=== PATIENT | male | born 1970 | race Caucasian/White ===

== ENCOUNTER 2020-08-29 08:58 | Inpatient (IN) | payer OTHER ==
[~2020-08-29] VITALS: Ht 193 cm; Wt 129.3 kg
[2020-08-29] MEDS ORDERED: ZANAFLEX4 MG PO (09:23)
[2020-08-29] MEDS ORDERED: GLUCOPHAGE500 MG PO (09:23)
[2020-08-29] MEDS ORDERED: FENOFIBRATE160 MG PO (09:24)
[2020-08-29] MEDS ORDERED: GLUCOTROL 5 MG T5 MG PO (09:24)
[2020-08-29] MEDS ORDERED: GABAPENTIN300 MG PO (09:24)
[2020-08-29] MEDS ORDERED: CRESTOR20 MG PO (09:24)
[2020-08-29] MEDS ORDERED: MOBIC7.5 MG PO (09:25)
[2020-08-29] MEDS ORDERED: LISINOPRIL10 MG PO (09:25)
[2020-08-29 10:12] LABS: BASOPHILS 0 % (0-2); EOSINOPHILS 1.9 % (0-7); HEMATOCRIT 36.8 % (42.0-54.0); HEMOGLOBIN 12.7 g/dL (13.5-17.5); IMMATURE GRANULOCYTES 0.2 % (0-5); LYMPHOCYTES 25.3 % (15-50); MCH 28.7 pg (26.0-34.0); MCHC 34.5 g/dL (31.0-37.0); MCV 83.3 fL (80.0-100.0); MEAN PLATELET VOLUME 10.9 fL (7.4-10.4); MONOCYTES 4.7 % (2-11); NEUTROPHILS 67.9 % (40-80); PLATELET COUNT 138 10x3/uL (130-400); RBC 4.42 10x6/uL (4.20-6.10); RDW 12.1 % (11.5-14.5); WBC 5.8 10x3/uL (4.8-10.8)
[2020-08-29 10:13] LABS: BILIRUBIN NEGATIVE (NEGATIVE); KETONE NEGATIVE (NEGATIVE); NITRITE NEGATIVE (NEGATIVE); UROBILINOGEN NORMAL mg/dL (< 2)
[2020-08-29 10:17] LABS: CALC OSMOLALITY 290 mosm/kg (275-300); CARBON DIOXIDE 22.9 mmol/L (21.0-32.0); CHLORIDE - SERUM 104 mmol/L (98-107); CREATININE - SERUM 1.2 mg/dL (0.6-1.3); GLUCOSE 372 mg/dL (74-106); POTASSIUM - SERUM 4.7 mmol/L (3.5-5.1); SODIUM 137 mmol/L (136-145); UREA NITROGEN 19 mg/dL (7-18); eGFR NON AFRICAN AMERICAN 68 mL/min (90-120)
[2020-08-29 10:26] LABS: ALBUMIN 3.7 g/dL (3.4-5.0); ALKALINE PHOSPHATASE 38 U/L (30-120); ALT (SGPT) 40 U/L (10-68); AMYLASE - SERUM 46 U/L (25-115); LIPASE 191 U/L (73-393); PROTEIN - SERUM 6.7 g/dL (6.4-8.2); TROPONIN-I < 0.017 ng/mL (0.000-0.060)
[2020-08-29 11:15] VITALS: BP 165/93
[2020-08-29 15:22] VITALS: BP 138/82
[2020-08-29 19:07] VITALS: BP 126/75
[2020-08-29 20:00] VITALS: BP 132/83
--- NOTE | 2020-08-29 23:00 | NUR ---
PT ARRIVED TO FLOOR VIA WHEELCHAIR. AOX4, AMBULATED TO BED. PT HAVING SHARP RUQ PAIN. IV LEFT HAND INFUSING NS @ 75. CONSENTS SIGNED AT THIS TIME FOR LAP ELKE AND LAP VENTRAL HERNIA REPAIR. PT STATES PAIN 8/10 AT THIS TIME. GAVE MORPHINE AND ZOFRAN ORDERED. PROVIDED PT WITH INCENTIVE SPIROMETER AND EDUCATED ON USE. PT DEMONSTRATED BACK HOW TO USE. ENCOURAGED TO USE Q1H WHILE AWAKE. PT VERBALIZED UNDERSTANDING. SET UP SCDS AND EDUCATED ON USE, PT DOES NOT WANT TO WEAR AT THIS TIME. DENIES OTHER NEEDS. CL IN REACH, WILL CTM
--- NOTE | 2020-08-30 | NUR ---
PT REMINDED HE IS NPO AFTER MN, VERBALIZED UNDERSTANDING
[2020-08-30 00:31] VITALS: BMI 34.7
[2020-08-30 04:00] VITALS: BP 129/75
--- NOTE | 2020-08-30 04:00 | NUR ---
PT AWAKE AT THIS TIME, READY TO TAKE HIBICLENS SHOWER. PROVIDED PT WITH GOWN AND EVERYTHING NEEDED FOR SHOWER
[2020-08-30 05:39] LABS: BASOPHILS 0 % (0-2); HEMATOCRIT 35.2 % (42.0-54.0); HEMOGLOBIN 12.2 g/dL (13.5-17.5); IMMATURE GRANULOCYTES 0.3 % (0-5); LYMPHOCYTES 22.2 % (15-50); MCHC 34.7 g/dL (31.0-37.0); MCV 83.6 fL (80.0-100.0); MEAN PLATELET VOLUME 10.8 fL (7.4-10.4); MONOCYTES 7.8 % (2-11); NEUTROPHILS 68.7 % (40-80); PLATELET COUNT 129 10x3/uL (130-400); RBC 4.21 10x6/uL (4.20-6.10); RDW 12.3 % (11.5-14.5); WBC 6.7 10x3/uL (4.8-10.8)
[2020-08-30 05:59] LABS: INR 1.18 (0.85-1.17); PROTIME 14.9 SECONDS (11.6-15.0)
--- NOTE | 2020-08-30 07:16 | NUR ---
REC'D IN BED AWAKE AND ALERT. RESP EVEN AND UNLABORED WITH NO DISTRESS NOTED. CAN EXPRESS NEEDS AND AND WANTS. NO C/O NOTE OR VOICED. ASSESMENT COMPLETED. C/L IN REACH AT BEDSIDE.
[2020-08-30 07:23] LABS: ALBUMIN 3.3 g/dL (3.4-5.0); ALKALINE PHOSPHATASE 35 U/L (30-120); ALT (SGPT) 64 U/L (10-68); BILIRUBIN - TOTAL 0.85 mg/dL (0.2-1.3); CALC OSMOLALITY 286 mosm/kg (275-300); CALCIUM 8.6 mg/dL (8.5-10.1); CARBON DIOXIDE 24.2 mmol/L (21.0-32.0); CHLORIDE - SERUM 104 mmol/L (98-107); GLUCOSE 258 mg/dL (74-106); MAGNESIUM - SERUM 1.2 mg/dL (1.8-2.4); PHOSPHOROUS 3.5 mg/dL (2.5-4.9); PROTEIN - SERUM 6.3 g/dL (6.4-8.2); SODIUM 139 mmol/L (136-145); UREA NITROGEN 13 mg/dL (7-18); eGFR NON AFRICAN AMERICAN 84 mL/min (90-120)
[2020-08-30 10:10] VITALS: BP 114/74
[2020-08-30 14:11] VITALS: Ht 193 cm; Wt 129.3 kg
--- NOTE | 2020-08-30 16:12 | NUR ---
I have reviewed this patient and I concur with the Shift Assessment completed by the Licensed Practical Nurse today this shift.
--- NOTE | 2020-08-30 17:56 | NUR ---
PATIENT SLEEPING. 4L O2 WITH 94% SAT. DOSES OFF QUICKLY. NO GRIMACING NOTED AT THIS TIME. HR 85.
--- NOTE | 2020-08-30 18:19 | NUR ---
JUST ARRIVED BACK TO FLOOR FROM RECOVERY EASILY TO AROUSED WHEN NAME IS CALLED. RESP EVEN AND UNLABORED. ABD BINDER IN PLACE WITH FOUR LAP SITES NOTED AND DRESSING TO RIGHT UPPER QUADRANT AT THIS TIME. VITAL PER PROTOCOL. AND CL IN REACH AT BEDSIDE.
[2020-08-30 18:24] VITALS: BP 137/80
--- NOTE | 2020-08-30 19:30 | NUR ---
PT TOLERATING ICE CHIPS, GIVEN POPSICLE AND ICEWATER PER REQUEST.
[2020-08-30 20:00] VITALS: BP 150/81
--- NOTE | 2020-08-30 21:00 | NUR ---
PT REPORTS ABDOMINAL PAIN. ESPECIALLY WHILE COUGHING. STATES HE HAS DRANK 2 LARGE CUPS OF WATER ALREADY. SUGGESTED HE NOT FILL BELLY BECAUSE EXPANSION WILL PUT PRESSURE ON ABDOMEN AND CAUSE DISCOMFORT. PT ALSO ASKING IF HE CAN REMOVE ABDOMINAL BINDER. ENCOURAGED PT TO KEEP ON AND INFORMED HIM PAIN MAY INCREASE IF HE DOES NOT HAVE SOMETHING THERE TO BRACE IT WHEN MOVING/COUGHING. PT AND VERBALIZED UNDERSTANDING.
[2020-08-31] VITALS: BP 126/75
--- NOTE | 2020-08-31 03:45 | NUR ---
I have reviewed this patient and I concur with the Shift Assessment completed by the Licensed Practical Nurse today this shift.
[2020-08-31 04:00] VITALS: BP 147/72
[2020-08-31 08:02] LABS: BASOPHILS 0 % (0-2); EOSINOPHILS 0 % (0-7); HEMATOCRIT 33.1 % (42.0-54.0); HEMOGLOBIN 11.4 g/dL (13.5-17.5); IMMATURE GRANULOCYTES 0.2 % (0-5); LYMPHOCYTES 8.7 % (15-50); MCHC 34.4 g/dL (31.0-37.0); MCV 84.2 fL (80.0-100.0); MEAN PLATELET VOLUME 11.1 fL (7.4-10.4); MONOCYTES 6.6 % (2-11); NEUTROPHILS 84.5 % (40-80); PLATELET COUNT 139 10x3/uL (130-400); RBC 3.93 10x6/uL (4.20-6.10); RDW 12.2 % (11.5-14.5)
[2020-08-31 08:22] LABS: WBC 8.5 10x3/uL (4.8-10.8)
[2020-08-31 08:26] LABS: ANION GAP 13.3 mmol/L (8-16); BILIRUBIN - TOTAL 0.62 mg/dL (0.2-1.3); CALCIUM 8.1 mg/dL (8.5-10.1); CARBON DIOXIDE 23.9 mmol/L (21.0-32.0); POTASSIUM - SERUM 4.2 mmol/L (3.5-5.1); PROTEIN - SERUM 6.4 g/dL (6.4-8.2)
[2020-08-31 08:32] LABS: CREATININE - SERUM 1.3 mg/dL (0.6-1.3)
[2020-08-31 09:15] VITALS: BP 135/85
[2020-08-31 12:23] VITALS: BP 130/82
[2020-08-31 16:00] VITALS: BP 112/70
--- NOTE | 2020-08-31 17:25 | NUR ---
I have reviewed this patient and I concur with the Shift Assessment completed by the Licensed Practical Nurse today this shift.
--- NOTE | 2020-08-31 19:00 | NUR ---
RECEIVED REPORT, ASSUMED CARE, BREATHING EVEN UNLABORED, CALL LIGHT IN REACH, BED LOWEST POSITION, DENIES NEEDS, NO S/S OF DISTRESS NOTED, IV LH PATENT, ABD BINDER ON, DRESSINGS TO ABD CDI
[2020-08-31 21:35] VITALS: BP 131/84
[2020-09-01] VITALS: BP 135/81
[2020-09-01 04:00] VITALS: BP 125/79
[2020-09-01 05:59] LABS: BASOPHILS 0.2 % (0-2); EOSINOPHILS 1.1 % (0-7); HEMATOCRIT 31.7 % (42.0-54.0); IMMATURE GRANULOCYTES 0.2 % (0-5); LYMPHOCYTES 23.8 % (15-50); MCH 29.3 pg (26.0-34.0); MCHC 34.7 g/dL (31.0-37.0); MCV 84.5 fL (80.0-100.0); MEAN PLATELET VOLUME 10.7 fL (7.4-10.4); MONOCYTES 7.4 % (2-11); NEUTROPHILS 67.3 % (40-80); PLATELET COUNT 143 10x3/uL (130-400); RBC 3.75 10x6/uL (4.20-6.10); RDW 12.3 % (11.5-14.5)
[2020-09-01 06:05] LABS: WBC 6.3 10x3/uL (4.8-10.8)
[2020-09-01 06:43] LABS: ALBUMIN 2.8 g/dL (3.4-5.0); ALKALINE PHOSPHATASE 45 U/L (30-120); ALT (SGPT) 101 U/L (10-68); BILIRUBIN - TOTAL 0.57 mg/dL (0.2-1.3); CALCIUM 8.4 mg/dL (8.5-10.1); CARBON DIOXIDE 27.7 mmol/L (21.0-32.0); CHLORIDE - SERUM 104 mmol/L (98-107); PROTEIN - SERUM 6.2 g/dL (6.4-8.2); SODIUM 138 mmol/L (136-145); UREA NITROGEN 18 mg/dL (7-18); eGFR NON AFRICAN AMERICAN 84 mL/min (90-120)
[2020-09-01 06:46] LABS: CALC OSMOLALITY 286 mosm/kg (275-300); GLUCOSE 262 mg/dL (74-106)
--- NOTE | 2020-09-01 07:44 | NUR ---
PT RESTING IN BED WITH C/O PAIN. REPORTS PAIN 7/10 AT THIS TIME. PAIN MEDICATION ADMINISTERED PER MD ORDERS.
[2020-09-01 08:36] VITALS: BP 137/78
[2020-09-01 11:51] VITALS: BP 143/82
[2020-09-01 16:22] VITALS: BP 134/83
--- NOTE | 2020-09-01 19:00 | NUR ---
RECEIVED REPORT, ASSUMED CARE, BREATHING EVEN UNLABORED, CALL LIGHT IN REACH, BED LOWEST POSITION, DENIES NEEDS, NO S/S OF DISTRESS NOTED, IV RH PATENT, ABD BINDER ON, DRESSINGS TO ABD CDI, STATES PAIN IN UPPER ABDOMINAL INCISION IS WORSE, STATES HE HAS TRIED TO WALK BUT PAIN WAS TO MUCH
[2020-09-01 20:00] VITALS: BP 141/76
[2020-09-02] VITALS: BP 125/87
--- NOTE | 2020-09-02 03:38 | NUR ---
I have reviewed this patient and I concur with the Shift Assessment completed by the Licensed Practical Nurse today this shift.
[2020-09-02 04:00] VITALS: BP 160/89
[2020-09-02 05:48] LABS: BASOPHILS 0 % (0-2); EOSINOPHILS 2.4 % (0-7); HEMATOCRIT 37.1 % (42.0-54.0); HEMOGLOBIN 12.6 g/dL (13.5-17.5); IMMATURE GRANULOCYTES 0.3 % (0-5); LYMPHOCYTES 26.2 % (15-50); MCH 29.2 pg (26.0-34.0); MCV 85.9 fL (80.0-100.0); MEAN PLATELET VOLUME 10.4 fL (7.4-10.4); MONOCYTES 7.7 % (2-11); NEUTROPHILS 63.4 % (40-80); RBC 4.32 10x6/uL (4.20-6.10); RDW 12.2 % (11.5-14.5); WBC 7.2 10x3/uL (4.8-10.8)
[2020-09-02 06:11] LABS: PLATELET COUNT 215 10x3/uL (130-400)
[2020-09-02 06:30] LABS: ALBUMIN 3.1 g/dL (3.4-5.0); ALKALINE PHOSPHATASE 79 U/L (30-120); ALT (SGPT) 107 U/L (10-68); BILIRUBIN - TOTAL 0.57 mg/dL (0.2-1.3); CALCIUM 8.6 mg/dL (8.5-10.1); CARBON DIOXIDE 26.2 mmol/L (21.0-32.0); CHLORIDE - SERUM 104 mmol/L (98-107); CREATININE - SERUM 0.9 mg/dL (0.6-1.3); POTASSIUM - SERUM 4.1 mmol/L (3.5-5.1); PROTEIN - SERUM 7.2 g/dL (6.4-8.2); SODIUM 138 mmol/L (136-145); eGFR NON AFRICAN AMERICAN > 90 mL/min (90-120)
[2020-09-02 06:31] LABS: CALC OSMOLALITY 280 mosm/kg (275-300); GLUCOSE 210 mg/dL (74-106); UREA NITROGEN 11 mg/dL (7-18)
--- NOTE | 2020-09-02 07:51 | NUR ---
LYING IN BED,WITHOUT DISTRESS. DENIES NEEDS.CALL LIGHT IN REACH
[2020-09-02 09:05] VITALS: BP 135/85
[2020-09-02 12:38] VITALS: BP 120/84
[2020-09-02 15:00] VITALS: BP 146/85
--- NOTE | 2020-09-02 19:45 | NUR ---
A&O X 4. SUPINE IN BED. REPORTS PAIN IN ABDOMEN. DENIES BM SINCE SURGERY, ALSO STATES HE HAS NOT PASSED GAS IN TWO DAY. BOWEL SOUNDS ACTIVE. ENCOURAGED AMBULATION AND INCREASING PO FLUID INTAKE WITH MIRALAX. PT AND VERBALIZED UNDERSTANDING, CTM.
[2020-09-02 20:00] VITALS: BP 150/94
[2020-09-03] VITALS: BP 123/88
--- NOTE | 2020-09-03 02:23 | NUR ---
I have reviewed this patient and I concur with the Shift Assessment completed by the Licensed Practical Nurse today this shift.
[2020-09-03 04:00] VITALS: BP 144/92
[2020-09-03 06:46] LABS: BASOPHILS 0 % (0-2); EOSINOPHILS 3.4 % (0-7); HEMATOCRIT 32.9 % (42.0-54.0); HEMOGLOBIN 11.1 g/dL (13.5-17.5); IMMATURE GRANULOCYTES 0.2 % (0-5); LYMPHOCYTES 23.3 % (15-50); MCH 28.6 pg (26.0-34.0); MCHC 33.7 g/dL (31.0-37.0); MCV 84.8 fL (80.0-100.0); MEAN PLATELET VOLUME 10.3 fL (7.4-10.4); MONOCYTES 7.6 % (2-11); NEUTROPHILS 65.5 % (40-80); PLATELET COUNT 175 10x3/uL (130-400); RBC 3.88 10x6/uL (4.20-6.10); WBC 5.4 10x3/uL (4.8-10.8)
[2020-09-03 07:00] VITALS: BP 142/90
[2020-09-03 07:00] LABS: ALBUMIN 2.4 g/dL (3.4-5.0); ALKALINE PHOSPHATASE 59 U/L (30-120); BILIRUBIN - TOTAL 0.47 mg/dL (0.2-1.3); CALCIUM 8.5 mg/dL (8.5-10.1); CARBON DIOXIDE 26.2 mmol/L (21.0-32.0); CHLORIDE - SERUM 105 mmol/L (98-107); CREATININE - SERUM 0.8 mg/dL (0.6-1.3); GLUCOSE 201 mg/dL (74-106); PROTEIN - SERUM 6.1 g/dL (6.4-8.2); SODIUM 138 mmol/L (136-145); eGFR NON AFRICAN AMERICAN > 90 mL/min (90-120)
[2020-09-03 07:01] LABS: ALT (SGPT) 77 U/L (10-68); CALC OSMOLALITY 282 mosm/kg (275-300); UREA NITROGEN 16 mg/dL (7-18)
--- NOTE | 2020-09-03 10:38 | NUR ---
pt dc home, went over patient paperwork as well as follow up appointments. all questions answered. iv in rt fa dc with catheter intact.patient taken down via wc by aram
== END 2020-09-03 10:44 | disposition home or self-care (01) | DRG 416 ==
LOC: D.ER 08:58 → D.MS 12:37 → D.EDHOLD 12:37 → D.MS 22:09
PROVIDERS: Family Medicine; Family Medicine Adult Medicine; Surgery; ADMIT Family Medicine; ATTEND Family Medicine
PROC: 0WJF4ZZ Inspection of Abdominal Wall, Percutaneous Endoscopic Approach (ICD-10-PCS; 2020-08-30)
PROC: 0FT40ZZ Resection of Gallbladder, Open Approach (ICD-10-PCS; principal; 2020-08-30 12:15)
PROC: 0WUF0JZ Supplement Abdominal Wall with Synthetic Substitute, Open Approach (ICD-10-PCS; 2020-08-30 12:15)
DX: K80.00 Calculus of gallbladder with acute cholecystitis without obstruction (principal); E66.9 Obesity, unspecified; Z68.34 Body mass index [BMI] 34.0-34.9, adult; E11.40 Type 2 diabetes mellitus with diabetic neuropathy, unspecified; E78.5 Hyperlipidemia, unspecified; I10 Essential (primary) hypertension